=== PATIENT | male | born 1955 | race Hispanic/Latino ===

== ENCOUNTER 2017-01-14 10:52 | Emergency (ER) | payer MEDICARE ==
[2017-01-14 10:57] VITALS: RESP 18; TEMP 98.6; O2SAT 97; BMI 31.9
[2017-01-14] MEDS ORDERED: Sodium Chloride 0.9% 1,000 ML IV ONE (11:05)
--- NOTE | 2017-01-14 11:30 | ED PDOC ---
Arrival/HPI - General Historian: Patient, Family <Ketan Luna - Last Filed: 01/14/17 14:20> <Ralph Castillo DO - Last Filed: 01/14/17 21:06> - General Chief Complaint: Abdominal Pain Time Seen by Provider: 01/14/17 11:04 - History of Present Illness Narrative History of Present Illness (Text): 01/14/17 11:20 Mr. Vargas is a 61 year old male with past medical history significant for Hypertension, DM2, elevated cholesterol, pancreatitis, and possible gastroparesis per family complaining of 1 week history of right sided abdominal pain. Pt indicates the pain is dull, RLQ more than RUQ discomfort with some radiation of pain into his right lower back. He rates the pain as 7/10 and states his pain is worsened with side to side movement and deep breaths in. He denies taking any medication for the pain, trauma or strain. Pt is scheduled for barium swallow study on 01/16 for suspected gastroparesis. Associated symptoms include increased frequency with urination and cloudy urine. Pt denies hematuria, change in stool, chest pain, shortness of breath, nausea, vomiting, and diarrhea. (Ketan Luna) Past Medical History - Provider Review Nursing Documentation Reviewed: Yes - Infectious Disease Hx of Infectious Diseases: None - Tetanus Immunization Tetanus Immunization: Unknown - Cardiac Hx Hypertension: Yes - Neurological Hx Dementia: Yes - HEENT Other/Comment: Sx to the left eye - Endocrine/Metabolic Hx Diabetes Mellitus Type 2: Yes - Musculoskeletal/Rheumatological Hx Falls: No - Psychiatric Hx Depression: No Hx Emotional Abuse: No Hx Physical Abuse: No Hx Substance Use: No - Surgical History Hx Orthopedic Surgery: Yes (BACK, LEFT SHOULDER) - Anesthesia Hx Anesthesia: Yes Hx Anesthesia Reactions: No Hx Malignant Hyperthermia: No - Suicidal Assessment Feels Threatened In Home Enviroment: No <Ketan Luna - Last Filed: 01/14/17 14:20> Family/Social History - Physician Review Nursing Documentation Reviewed: Yes Family/Social History: No Known Family HX Smoking Status: Heavy Smoker > 10 Cigarettes Daily Hx Alcohol Use: No Hx Substance Use: No <Ketan Luna - Last Filed: 01/14/17 14:20> Allergies/Home Meds <Ketan Luna - Last Filed: 01/14/17 14:20> <AnthonymarcialRalph lu DO - Last Filed: 01/14/17 21:06> Allergies/Adverse Reactions: Allergies codeine Allergy (Verified 01/14/17 10:58) SHORTNESS OF BREATH iodine Allergy (Verified 01/14/17 10:58) ITCHING Home Medications: Home Meds Medication Instructions Recorded Confirmed MetFORMIN [glucoPHAGE] 1,000 mg PO BID 06/05/15 01/14/17 Aspirin [Ecotrin] 81 mg PO DAILY 01/14/17 01/14/17 GlipiZIDE [Glucotrol] 5 mg PO DAILY 01/14/17 01/14/17 Omeprazole [Omeprazole] 20 mg PO DAILY 01/14/17 01/14/17 Review of Systems - Physician Review All systems were reviewed & negative as marked: Yes - Review of Systems Gastrointestinal: Abdominal Pain (right sided ). absent: Nausea, Vomiting Genitourinary Male: Frequency, Other (cloudy urine). absent: Hematuria Musculoskeletal: Back Pain (lower back pain right sided ) <Ketan Luna - Last Filed: 01/14/17 14:20> Physical Exam Vital Signs Reviewed: Yes Temperature: Afebrile Blood Pressure: Hypertensive Pulse: Regular Respiratory Rate: Normal Appearance: Positive for: Well-Appearing Pain Distress: None Mental Status: Positive for: Alert and Oriented X 3 - Systems Exam Head: Present: Atraumatic, Normocephalic Pupils: Present: PERRL Extroacular Muscles: Present: EOMI Conjunctiva: Present: Normal Mouth: Present: Moist Mucous Membranes Neck: Present: Normal Range of Motion Respiratory/Chest: Present: Good Air Exchange, Other (coarse breath sounds). No : Respiratory Distress, Accessory Muscle Use Cardiovascular: Present: Regular Rate and Rhythm, Normal S1, S2. No: Murmurs Abdomen: Present: Tenderness, Normal Bowel Sounds. No: Distention, Peritoneal Signs, Rebound, Guarding, Mass/Organomegaly Upper Extremity: Present: Normal Inspection. No: Cyanosis, Edema Lower Extremity: Present: Normal Inspection. No: Edema Neurological: Present: GCS=15, CN II-XII Intact, Speech Normal Skin: Present: Warm, Dry, Normal Color. No: Rashes Psychiatric: Present: Alert, Oriented x 3, Normal Insight, Normal Concentration <Ketan Luna - Last Filed: 01/14/17 14:20> Medical Decision Making - Lab Interpretations I have reviewed the lab results: Yes <Ketan Luna - Last Filed: 01/14/17 14:20> <Ralph Castillo DO - Last Filed: 01/14/17 21:06> ED Course and Treatment: 01/14/17 11:37 Impression: Mr. Vargas is a 61 year old male with past medical history of Hypertension, DM2, elevated cholesterol and pancreatitis who presents with one week history of right sided abdominal pain. Differential Diagnosis included but are not limited to: - UTI - Musculoskeletal strain - Cystitis Plan: - Labs: CBC, CMP, Lipase, Urinalysis with culture - Meds: Toradol, IVF - Reassess and disposition Progress Notes: 01/14/17 11:48 (Ketan Luna) 01/14/17 Patient Seen With Resident: In agreement with resident note which contains more details about the patient. Patient was seen and evaluated with resident. Came up with plan and treatment together. (Ralph Castillo DO) - Lab Interpretations Lab Results: 01/14/17 11:30 01/14/17 11:30 Lab Results 01/14/17 12:40: Urine Color Light yellow, Urine Appearance Clear, Urine pH 7.0, Ur Specific [place] 1.020, Urine Protein 30 H, Urine Glucose (UA) Negative, Urine Ketones Negative, Urine Blood Trace-intact H, Urine Nitrate Negative, Urine Bilirubin Negative, Urine Urobilinogen 1.0 H, Ur Leukocyte Esterase Trace H, Urine RBC 0 - 2, Urine WBC 0 - 2, Ur Epithelial Cells 0 - 2 01/14/17 11:30: Sodium 139, Potassium 3.9, Chloride 102, Carbon Dioxide 27, Anion Gap 14, BUN 18, Creatinine 0.7, Est GFR ( Amer) > 60, Est GFR (Non- Af Amer) > 60, Random Glucose 174 H, Calcium 9.4, Total Bilirubin 0.5, AST 23, ALT 45, Alkaline Phosphatase 62, Total Protein 7.5, Albumin 4.2, Globulin 3.3, Albumin/Globulin Ratio 1.3, Lipase 52 01/14/17 11:30: WBC 7.9, RBC 5.18, Hgb 16.1, Hct 45.2, MCV 87.3, MCH 31.1, MCHC 35.6, RDW 12.7, Plt Count 102 L, MPV 10.8, Gran % 74.5 H, Lymph % (Auto) 17.8 L , [place] % (Auto) 6.8 H, Eos % (Auto) 0.6 L, Baso % (Auto) 0.3, Gran # 5.91, Lymph # 1.4, [place] # 0.5, Eos # 0.1, Baso # 0.02 - Medication Orders Current Medication Orders: Discontinued Medications Sodium Chloride (Sodium Chloride 0.9%) 1,000 mls @ 250 mls/hr IV .Q4H ONE Stop: 01/14/17 15:04 Last Admin: 01/14/17 11:41 Dose: 250 mls/hr Ketorolac Tromethamine (Toradol) 30 mg IVP STAT STA Stop: 01/14/17 11:42 Last Admin: 01/14/17 12:31 Dose: 30 mg - 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 LUIS has examined the patient and agrees with the treatment plan. <Ketan Luna - Last Filed: 01/14/17 14:20> - Scribe Statement The provider has reviewed the documentation as recorded by the Scribe <Ralph Castillo DO - Last Filed: 01/14/17 21:06> - Scribe Statement 01/14/2017 Kareen Brown Provider Scribe Attestation: All medical record entries made by the Scribe were at my direction and personally dictated by me. I have reviewed the chart and agree that the record accurately reflects my personal performance of the history, physical exam, medical decision making, and the department course for this patient. I have also personally directed, reviewed, and agree with the discharge instructions and disposition. (Ralph Castillo DO) Disposition/Present on Arrival - Present on Arrival Any Indicators Present on Arrival: No History of DVT/PE: No History of Uncontrolled Diabetes: No Urinary Catheter: No History of Decub. Ulcer: No History Surgical Site Infection Following: None - Disposition Have Diagnosis and Disposition been Completed?: Yes Disposition Time: 13:36 Patient Plan: Discharge <Ketan Luna - Last Filed: 01/14/17 14:20> <Ralph Castillo DO - Last Filed: 01/14/17 21:06> - Disposition Diagnosis: Musculoskeletal strain Disposition: HOME/ ROUTINE Condition: IMPROVED Discharge Instructions (ExitCare): Thrombocytopenia (ED) Additional Instructions: Mr. Vargas, thank you for letting us take care of you today. Your provider was Dr. Luna. You were treated for musculoskeletal strain. The emergency medical care you received today was directed at your acute symptoms. If you were prescribed any medication, please fill it and take as directed. It may take several days for your symptoms to resolve. Return to the Emergency Department if your symptoms worsen, do not improve, or if you have any other problems. Please contact your doctor or call one of the physicians/clinics you have been referred to that are listed on the Patient Visit Information form that is included in your discharge packet. Bring any paperwork you were given at discharge with you along with any medications you are taking to your follow up visit. Our treatment cannot replace ongoing medical care by a primary care provider (PCP) outside of the emergency department. Thank you for allowing the [facility] team to be part of your care today. Follow up with primary care physician.
[2017-01-14 11:45] LABS: BASO # 0.02 K/mm3 (0.0-2.0); BASO % 0.3 % (0.0-3.0); EOS # 0.1 (0.0-0.7); EOS % 0.6 % (1.5-5.0); GRAN # 5.91 (1.4-6.5); GRAN % 74.5 % (50.0-68.0); HEMOGLOBIN 16.1 gm/dL (14.0-18.0); LYMPH # 1.4 (1.2-3.4); LYMPH % 17.8 % (22.0-35.0); MEAN CELL VOLUME 87.3 fL (80.0-105.0); MEAN CORPUSCULAR HEMOGLOBIN 31.1 pg (25.0-35.0); MEAN CORPUSCULAR HGB CONC 35.6 g/dl (31.0-37.0); MEAN PLATELET VOLUME 10.8 fl (7.0-11.0); MONO # 0.5 (0.1-0.6); MONO % 6.8 % (1.0-6.0); PLATELET COUNT 102 10^3/uL (120.0-450.0); RBC 5.18 10^6/uL (3.5-6.1); RED CELL DISTRIBUTION WIDTH 12.7 % (11.5-14.5); WHITE BLOOD COUNT 7.9 10^3/ul (4.5-11.0)
[2017-01-14 11:53] LABS: ALB/GLOB RATIO 1.3 (1.1-1.8); ALBUMIN 4.2 g/dL (3.0-4.8); ALT/SGPT 45 U/L (7-56); AST/SGOT 23 U/L (15-59); BLOOD UREA NITROGEN 18 mg/dL (7-21); CALCIUM 9.4 mg/dL (8.4-10.5); GFR AFRICAN-AMERICAN > 60; GFR NON-AFRICAN AMERICAN > 60; LIPASE 52 U/L (23-300)
[2017-01-14 12:56] LABS: URINE BILIRUBIN NEGATIVE (NEGATIVE); URINE BLOOD TRACE-INTACT (NEGATIVE); URINE GLUCOSE (UA) NEGATIVE (NEGATIVE); URINE LEUKOCYTE ESTERASE TRACE Leu/uL (NEGATIVE); URINE NITRATE NEGATIVE (NEGATIVE); URINE PROTEIN 30 mg/dL (<30 mg/dL)
[2017-01-14 12:59] LABS: URINE APPEARANCE CLEAR (CLEAR); URINE COLOR LIGHT YELLOW (YELLOW); URINE EPITHELIAL CELLS 0 - 2 /hpf (0-5); URINE RBC 0 - 2 /hpf (0-2); URINE WBC 0 - 2 /hpf (0-6)
[2017-01-14 13:52] VITALS: BP 145/71; PULSE 69
== END 2017-01-14 14:05 | disposition home or self-care (01) ==
LOC: ED 10:52
DX: S39.011A Strain of muscle, fascia and tendon of abdomen, initial encounter (principal); X58.XXXA Exposure to other specified factors, initial encounter; F17.210 Nicotine dependence, cigarettes, uncomplicated; E11.9 Type 2 diabetes mellitus without complications; I10 Essential (primary) hypertension
CPT/HCPCS: 80053; 81001; 83690; 85025; 87086; 96374; 99283; J1885; J7040

== ENCOUNTER 2018-10-01 19:35 | Observation (INO) | payer MEDICARE ==
[2018-10-01 19:59] VITALS: BMI 30.7
--- NOTE | 2018-10-01 20:12 | ED PDOC ---
Arrival/HPI - General Chief Complaint: Chest Pain Time Seen by Provider: 10/01/18 19:37 Historian: Patient - History of Present Illness Narrative History of Present Illness (Text): 10/01/18 19:50 Ascencion Vargas is a 62 year old male, whose past medical history includes hypertension, diabetes, hyperlipidemia, and pancreatitis, who presents to the ED complaining of mid-sternal chest pain since this morning. 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 Patient became concerned and presented to the ED for further evaluation. Patient denies any fever, chills, shortness of breath, nausea, vomiting, diarrhea, urinary symptoms, back pain, neck pain, headache, dizziness, or any other complaints. Symptom Onset: Gradual Symptom Course: Unchanged Activities at Onset: Light Context: Home Past Medical History - Provider Review Nursing Documentation Reviewed: Yes - Infectious Disease Hx of Infectious Diseases: None - Tetanus Immunization Tetanus Immunization: Unknown - Cardiac Hx Hypertension: Yes - Neurological Hx Dementia: Yes - HEENT Other/Comment: Sx to the left eye - Endocrine/Metabolic Hx Diabetes Mellitus Type 2: Yes - Musculoskeletal/Rheumatological Hx Falls: No - Psychiatric Hx Depression: No Hx Emotional Abuse: No Hx Physical Abuse: No Hx Substance Use: No - Surgical History Hx Orthopedic Surgery: Yes (BACK, LEFT SHOULDER) - Anesthesia Hx Anesthesia: Yes Hx Anesthesia Reactions: No Hx Malignant Hyperthermia: No - Suicidal Assessment Feels Threatened In Home Enviroment: No Family/Social History - Physician Review Nursing Documentation Reviewed: Yes Family/Social History: Unknown Family HX Smoking Status: Heavy Smoker > 10 Cigarettes Daily Hx Alcohol Use: No Hx Substance Use: No Allergies/Home Meds Allergies/Adverse Reactions: Allergies codeine Allergy (Verified 10/01/18 19:56) SHORTNESS OF BREATH iodine Allergy (Verified 10/01/18 19:56) ITCHING Home Medications: Home Meds Medication Instructions Recorded Confirmed MetFORMIN [glucoPHAGE] 1,000 mg PO BID 06/05/15 10/01/18 Omeprazole 20 mg PO DAILY 01/14/17 10/01/18 SITagliptin [Januvia] 100 mg PO DAILY 10/01/18 10/01/18 glyBURIDE [Glyburide] 5 mg PO BID 10/01/18 10/01/18 Review of Systems - Physician Review All systems were reviewed & negative as marked: Yes - Review of Systems Constitutional: Normal. absent: Fevers Eyes: Normal ENT: Normal Respiratory: Normal. absent: SOB, Cough Cardiovascular: Chest Pain Gastrointestinal: Normal. absent: Abdominal Pain, Diarrhea, Nausea, Vomiting Genitourinary Male: Normal. absent: Dysuria, Frequency, Hematuria, Urinary Outp ut Changes Musculoskeletal: Normal. absent: Back Pain, Neck Pain Skin: Normal. absent: Rash Neurological: Normal. absent: Headache, Dizziness Endocrine: Normal Hemo/Lymphatic: Normal Psychiatric: Normal Physical Exam Vital Signs Reviewed: Yes Vital Signs Temp Pulse Resp BP Pulse Ox 10/01/18 19:45 98.2 F 72 19 149/86 96 Temperature: Afebrile Blood Pressure: Normal Pulse: Regular Respiratory Rate: Normal Appearance: Positive for: Well-Appearing, Non-Toxic, Comfortable Pain Distress: None Mental Status: Positive for: Alert and Oriented X 3 Finger Stick Blood Glucose: 328 - Systems Exam Head: Present: Atraumatic, Normocephalic Pupils: Present: PERRL Extroacular Muscles: Present: EOMI Conjunctiva: Present: Normal Mouth: Present: Moist Mucous Membranes Neck: Present: Normal Range of Motion Respiratory/Chest: Present: Clear to Auscultation, Good Air Exchange. No: Respiratory Distress, Accessory Muscle Use Cardiovascular: Present: Regular Rate and Rhythm, Normal S1, S2. No: Murmurs Abdomen: No: Tenderness, Distention, Peritoneal Signs Back: Present: Normal Inspection Upper Extremity: Present: Normal Inspection. No: Cyanosis, Edema Lower Extremity: Present: Normal Inspection. No: Edema Neurological: Present: GCS=15, CN II-XII Intact, Speech Normal Skin: Present: Warm, Dry, Normal Color. No: Rashes Psychiatric: Present: Alert, Oriented x 3, Normal Insight, Normal Concentration Medical Decision Making ED Course and Treatment: 10/01/18 19:50 Impression: 62 year old male complaining of chest pain. Plan: -- US Abdomen -- EKG -- Chest X-ray -- Labs, cardiac enzymes -- Urinalysis -- Reassess and disposition Prior Visits: Notes and results from previous visits were reviewed. Progress Notes: Reviewed EKG, NSR at [address]. Non-specific ST/T wave changes. 10/01/18 20:49 Chest X-ray reviewed, shows no acute processes. 10/01/18 21:30 US Abdomen: The liver is of increased echogenicity without evidence of mass or defect measuring 15.89 x 12.01 cm. There is no intra or extrahepatic biliary ductal dilatation. The common bile duct measures 0.29 cm. The gallbladder is physiologically distended without evidence of calculi. The gallbladder wall is not thickened measuring 0.27 cm and there is no pericholecystic fluid. There is no abdominal ascites. The visualized portions of abdominal aorta present no abnormalities. The visualized portions of the pancreas are unremarkable. The spleen is of uniform echo texture and appears enlarged measuring 13.1 x 5.22 cm. The right kidney measures 11 x 6.44 x 6.24 cm and the left kidney measures 11.53 x 6.72 x 6.17 cm. Both kidneys are free of hydronephrosis. IMPRESSION: 1. Fatty liver. 2. Splenomegaly. Electronically signed on Oct 01, 2018 9:09:54 PM EDT by: Ralph Garcia M.D., MBA Certified By [facility] [facility] Fellowship Trained MRI and CT Specialist 10/01/18 21:[address] Melo, who is aware and agrees with plan. Accepts pt in to his service. Pt will go to telemetry observation for chest pain. - Lab Interpretations I have reviewed the lab results: Yes - RAD Interpretation Radiology Orders: 10/01/18 20:03 CHEST PORTABLE [RAD] Stat 10/01/18 20:04 ABDOMEN COMPLETE [US] [employer] Senior Manager: ED Physician - EKG Interpretation Interpreted by ED Physician: Yes Type: 12 lead EKG - Scribe Statement The provider has reviewed the documentation as recorded by the Satya Baum Provider Scribe Attestation: All medical record entries made by the Scribrayne were at my direction and personally dictated by me. I have reviewed the chart and agree that the record accurately reflects my personal performance of the history, physical exam, medical decision making, and the department course for this patient. I have also personally directed, reviewed, and agree with the discharge instructions and disposition. Disposition/Present on Arrival - Present on Arrival Any Indicators Present on Arrival: No History of DVT/PE: No History of Uncontrolled Diabetes: No Urinary Catheter: No History of Decub. Ulcer: No History Surgical Site Infection Following: None - Disposition Have Diagnosis and Disposition been Completed?: Yes Diagnosis: Chest pain Disposition: HOSPITALIZED Disposition Time: 21:30 Condition: FAIR
[2018-10-01 20:25] LABS: BASO # 0.03 K/mm3 (0.0-2.0); BASO % 0.4 % (0.0-3.0); EOS # 0.2 (0.0-0.7); EOS % 2.5 % (1.5-5.0); HEMOGLOBIN 16.4 g/dL (14.0-18.0); LYMPH # 1.9 (1.2-3.4); LYMPH % 27.7 % (22.0-35.0); MEAN CELL VOLUME 86.5 fl (80.0-105.0); MEAN CORPUSCULAR HGB CONC 34.7 g/dl (31.0-37.0); MEAN PLATELET VOLUME 11.2 fl (7.0-11.0); MONO # 0.3 (0.1-0.6); MONO % 4.3 % (1.0-6.0); RBC 5.47 10^6/uL (3.5-6.1); RED CELL DISTRIBUTION WIDTH 12.5 % (11.5-14.5); WHITE BLOOD COUNT 6.8 10^3/uL (4.5-11.0)
[2018-10-01 20:38] LABS: INR 1.19; PARTIAL THROMBOPLASTIN TIME 32.5 Seconds (26.9-38.3); PROTHROMBIN TIME 13.2 SECONDS (9.4-12.5)
[2018-10-01 20:41] LABS: ALB/GLOB RATIO 1.3 (1.1-1.8); ALBUMIN 4.3 g/dL (3.0-4.8); ALT/SGPT 24 U/L (7-56); AST/SGOT 21 U/L (17-59); BLOOD UREA NITROGEN 16 mg/dL (7-21); CALCIUM 9.3 mg/dL (8.4-10.5); GFR NON-AFRICAN AMERICAN > 60; TROPONIN I < 0.01 ng/mL
[2018-10-01 21:32] LABS: URINE BILIRUBIN NEGATIVE (NEGATIVE); URINE BLOOD TRACE-INTACT (NEGATIVE); URINE GLUCOSE (UA) >=1000 mg/dL (NEGATIVE); URINE LEUKOCYTE ESTERASE NEGATIVE Leu/uL (NEGATIVE); URINE PROTEIN 100 mg/dL (<30 mg/dL); URINE UROBILINOGEN 0.2 E.U./dL (<1 E.U./dL)
[2018-10-01 21:37] LABS: URINE APPEARANCE CLEAR (CLEAR); URINE COLOR YELLOW (YELLOW)
[2018-10-01] MEDS ORDERED: Magnesium Oxide 400 mg Tab UD PO STA (22:31)
[2018-10-02 05:40] VITALS: BP 155/86; RESP 18; TEMP 97
[2018-10-02] MEDS ORDERED: Insulin Reg-LOW-Coverage SC SCH (07:30)
--- NOTE | 2018-10-02 09:50 | CARD ---
APPROVED REPORT Date of service: 10/01/2018 EKG Measurement Heart [id number] <Conclusion> Normal sinus rhythm Left axis deviation T wave abnormality, consider lateral ischemia Abnormal ECG
--- NOTE | 2018-10-02 10:16 | RAD ---
Date of service: 10/01/2018 HISTORY: cp COMPARISON: 10/08/2014 TECHNIQUE: 1 view obtained. FINDINGS: LUNGS: No active pulmonary disease. PLEURA: No significant pleural effusion identified, no pneumothorax apparent. CARDIOVASCULAR: No aortic atherosclerotic calcification present. Normal cardiac size. No pulmonary vascular congestion. OSSEOUS STRUCTURES: No significant abnormalities. VISUALIZED UPPER ABDOMEN: Normal. OTHER FINDINGS: None. IMPRESSION: No active disease.
--- NOTE | 2018-10-02 10:28 | US ---
Date of service: 10/01/2018 HISTORY: Chest pain. History of abdominal aortic aneurysm. COMPARISON: 03/23/2014. Right upper quadrant ultrasound TECHNIQUE: Sonographic evaluation of the abdomen. FINDINGS: LIVER: Measures 15.9 cm. Hepatopedal blood flow. Fatty infiltration manifest ultrasonographically as increased echogenicity of the liver parenchyma. No mass. No intrahepatic bile duct dilatation. GALLBLADDER: Unremarkable. No gallstones. COMMON BILE DUCT: Measures 2.9 mm. No stones. No dilatation. PANCREAS: Unremarkable as visualized. No mass. No ductal dilatation. RIGHT KIDNEY: Measures 4.4 x 11.1cm. Normal echogenicity. No calculus, mass, or hydronephrosis. LEFT KIDNEY: Measures 6.7 x 11.5cm. Normal echogenicity. No calculus, mass, or hydronephrosis. SPLEEN: Mild splenomegaly. Orthogonal measurements 5.2 x 13.1 cm. AORTA: No aneurysmal dilatation. IVC: Unremarkable. OTHER FINDINGS: None. IMPRESSION: No significant or acute findings to account for/ related to the clinical presentation. Additional benign and/or incidental findings described above. Concordant findings (preliminary report) provided by [facility].
--- NOTE | 2018-10-02 10:48 | CP.PCM.HP ---
<CarolyneKetan landin - Last Filed: 10/02/18 12:34> History of Present Illness - History of Present Illness History of Present Illness: Francesco Luna PGY2 H&P for Dr. Melo CC: Chest Pain HPI: Patient is a 62 year old male with past medical history of tobacco abuse, HTN, HLD, DM2, pancreatitis who presented [place] [facility] [place] complaining of 12 hour history of mid-sternal chest pain. He became concerned with his symptoms in light of recent evaluation by his music engineer and the news that he had an aneurysm. He presented to the ED requesting further evaluation. He denies shortness of breath at rest or with exertion, the pain is non-reproducible but comes on randomly at rest and with doing things around the house. He denies radiation of his pain, nausea, vomiting, back pain, mid-epigastric pain, diarrhea, constipation, vomiting, dizziness or headache. 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 FMH: Mother and Father passed due to old age in 70s ALL: NKDA Meds: MAR reviewed Present on Admission - Present on Admission Any Indicators Present on Admission: No Review of Systems - Review of Systems All systems: reviewed and no additional remarkable complaints except (as mentioned in HPI) Past Patient History - Infectious Disease Hx of Infectious Diseases: None - Tetanus Immunizations Tetanus Immunization: Unknown - Past Social History Smoking Status: Heavy Smoker > 10 Cigarettes Daily Alcohol: Social Drugs: Denies Home Situation {Lives}: With Family - CARDIAC Hx Hypertension: Yes - PULMONARY Hx Respiratory Disorders: No - NEUROLOGICAL Hx Dementia: Yes - HEENT Other/Comment: Sx to the left eye - RENAL Hx Chronic Kidney Disease: No - ENDOCRINE/METABOLIC Hx Diabetes Mellitus Type 2: Yes - HEMATOLOGICAL/ONCOLOGICAL Hx Blood Disorders: No - INTEGUMENTARY Hx Dermatological Problems: No - MUSCULOSKELETAL/RHEUMATOLOGICAL Hx Falls: No - GASTROINTESTINAL Hx Gastrointestinal Disorders: Yes (AAA) Hx Gastroesophageal Reflux: Yes Hx Pancreatitis: No - GENITOURINARY/GYNECOLOGICAL Hx Genitourinary Disorders: No - PSYCHIATRIC Hx Depression: No Hx Emotional Abuse: No Hx Physical Abuse: No Hx Substance Use: No - SURGICAL HISTORY Hx Orthopedic Surgery: Yes (BACK, LEFT SHOULDER) - ANESTHESIA Hx Anesthesia: Yes Hx Anesthesia Reactions: No Hx Malignant Hyperthermia: No Meds Allergies/Adverse Reactions: Allergies Allergy/AdvReac Type Severity Reaction Status Date / Time codeine Allergy SHORTNESS Verified 10/01/18 19:56 OF BREATH iodine Allergy ITCHING Verified 10/01/18 19:56 Physical Exam - Constitutional Appears: Well, Non-toxic - Head Exam Head Exam: ATRAUMATIC, NORMOCEPHALIC - Eye Exam Eye Exam: EOMI, PERRL - ENT Exam ENT Exam: Mucous Membranes Moist - Neck Exam Neck exam: Positive for: Full Rom - Respiratory Exam Respiratory Exam: Clear to Auscultation Bilateral, NORMAL BREATHING PATTERN. absent: Rales, Rhonchi, Wheezes - Cardiovascular Exam Cardiovascular Exam: REGULAR RHYTHM, +S1, +S2 - GI/Abdominal Exam GI & Abdominal Exam: Firm, Soft. absent: Diminished Bowel Sounds, Distended, Guarding - Extremities Exam Extremities exam: Positive for: full ROM, pedal pulses present. Negative for: calf tenderness, pedal edema - Neurological Exam Neurological exam: Alert, CN II-XII Intact, Normal Gait, Oriented x3 - Psychiatric Exam Psychiatric exam: Normal Affect, Normal Mood - Skin Skin Exam: Dry, Warm Results - Vital Signs Recent Vital Signs: Last Vital Signs Temp 97 F L 10/02/18 05:39 Pulse 79 10/02/18 05:39 Resp 18 10/02/18 05:39 BP 155/86 H 10/02/18 09:31 Pulse Ox 97 10/02/18 05:39 - Labs Result Diagrams: 10/01/18 19:55 10/01/18 19:55 Labs: Laboratory Results - last 24 hr 10/01/18 10/01/18 10/01/18 19:55 19:55 19:55 WBC 6.8 RBC 5.47 Hgb 16.4 Hct 47.3 MCV 86.5 MCH 30.0 MCHC 34.7 RDW 12.5 Plt Count 114 L MPV 11.2 H Neut % (Auto) 65.1 Lymph % (Auto) 27.7 [place] % (Auto) 4.3 Eos % (Auto) 2.5 Baso % (Auto) 0.4 Lymph # (Auto) 1.9 [place] # (Auto) 0.3 Eos # (Auto) 0.2 Baso # (Auto) 0.03 Absolute Neuts (auto) 4.42 PT 13.2 H INR 1.19 APTT 32.5 Sodium 139 Potassium 4.0 Chloride 103 Carbon Dioxide 25 Anion Gap 16 BUN 16 Creatinine 0.8 Est GFR ( Amer) > 60 Est GFR (Non-Af Amer) > 60 POC Glucose (mg/dL) Random Glucose 330 H* D Calcium 9.3 Magnesium 1.5 L Total Bilirubin 0.4 AST 21 ALT 24 Alkaline Phosphatase 65 Lactate Dehydrogenase 381 Total Creatine Kinase 45 Troponin I < 0.01 D Total Protein 7.6 Albumin 4.3 Globulin 3.3 Albumin/Globulin Ratio 1.3 Urine Color Urine Appearance Urine pH Ur Specific [place] Urine Protein Urine Glucose (UA) Urine Ketones Urine Blood Urine Nitrate Urine Bilirubin Urine Urobilinogen Ur Leukocyte Esterase Urine RBC Urine WBC Ur Epithelial Cells 10/01/18 10/01/18 10/01/18 19:55 21:30 22:56 WBC RBC Hgb Hct MCV MCH MCHC RDW Plt Count MPV Neut % (Auto) Lymph % (Auto) [place] % (Auto) Eos % (Auto) Baso % (Auto) Lymph # (Auto) [place] # (Auto) Eos # (Auto) Baso # (Auto) Absolute Neuts (auto) PT INR APTT Sodium Potassium Chloride Carbon Dioxide Anion Gap BUN Creatinine Est GFR ( Amer) Est GFR (Non-Af Amer) POC Glucose (mg/dL) 328 H 272 H Random Glucose Calcium Magnesium Total Bilirubin AST ALT Alkaline Phosphatase Lactate Dehydrogenase Total Creatine Kinase Troponin I Total Protein Albumin Globulin Albumin/Globulin Ratio Urine Color Yellow Urine Appearance Clear Urine pH 6.0 Ur Specific [place] 1.025 Urine Protein 100 H Urine Glucose (UA) >=1000 Urine Ketones Trace H Urine Blood Trace-intact H Urine Nitrate Negative Urine Bilirubin Negative Urine Urobilinogen 0.2 Ur Leukocyte Esterase Negative Urine RBC 10 - 15 H Urine WBC 1 - 3 Ur Epithelial Cells 6 - 8 H 10/02/18 10/02/18 06:23 07:32 WBC RBC Hgb Hct MCV MCH MCHC RDW Plt Count MPV Neut % (Auto) Lymph % (Auto) [place] % (Auto) Eos % (Auto) Baso % (Auto) Lymph # (Auto) [place] # (Auto) Eos # (Auto) Baso # (Auto) Absolute Neuts (auto) PT INR APTT Sodium Potassium Chloride Carbon Dioxide Anion Gap BUN Creatinine Est GFR ( Amer) Est GFR (Non-Af Amer) POC Glucose (mg/dL) 263 H Random Glucose Calcium Magnesium Total Bilirubin AST ALT Alkaline Phosphatase Lactate Dehydrogenase Total Creatine Kinase Troponin I < 0.01 Total Protein Albumin Globulin Albumin/Globulin Ratio Urine Color Urine Appearance Urine pH Ur Specific [place] Urine Protein Urine Glucose (UA) Urine Ketones Urine Blood Urine Nitrate Urine Bilirubin Urine Urobilinogen Ur Leukocyte Esterase Urine RBC Urine WBC Ur Epithelial Cells Assessment & Plan - Assessment and Plan (Free Text) Assessment: 1.Chest Pain 2.HTN 3.Dyslipidemia 4.Fatty Liver 5.Spleenomegaly 6.Tobacco Abuse Patient was evaluated in ED with EKG showing no ST segment elevations or depressions, CXR without acute abnormalities, abdominal US showing splenomegaly and fatty liver without evidence of abdominal aneurysm. Patient was evaluated with blood testing and found to have troponin negative x 2. Will follow up on a third. He will undergo evaluation from cardiology with Dr. Rankin. Patient is placed on amlodipine and losartan for blood pressure control. Patient placed on insulin sliding scale and glyburide for blood sugar control in setting of DM2. Patient is placed on nicotine patch and counseled on smoking cessation. Patient is advised and educated on alcohol cessation in setting of fatty liver as evidence of abdominal US. Will monitor patient, trend troponins and follow up cardiology recommendations. Patient seen, case and plan discussed with attending, Dr. Melo <Adelfo Melo S - Last Filed: 10/02/18 15:48> Results - Vital Signs Recent Vital Signs: Last Vital Signs Temp 97 F L 10/02/18 05:39 Pulse 82 10/02/18 10:00 Resp 18 10/02/18 05:39 BP 155/86 H 10/02/18 09:31 Pulse Ox 98 10/02/18 10:00 - Labs Result Diagrams: 10/01/18 19:55 10/01/18 19:55 Labs: Laboratory Results - last 24 hr 10/01/18 10/01/18 10/01/18 19:55 19:55 19:55 WBC 6.8 RBC 5.47 Hgb 16.4 Hct 47.3 MCV 86.5 MCH 30.0 MCHC 34.7 RDW 12.5 Plt Count 114 L MPV 11.2 H Neut % (Auto) 65.1 Lymph % (Auto) 27.7 [place] % (Auto) 4.3 Eos % (Auto) 2.5 Baso % (Auto) 0.4 Lymph # (Auto) 1.9 [place] # (Auto) 0.3 Eos # (Auto) 0.2 Baso # (Auto) 0.03 Absolute Neuts (auto) 4.42 PT 13.2 H INR 1.19 APTT 32.5 Sodium 139 Potassium 4.0 Chloride 103 Carbon Dioxide 25 Anion Gap 16 BUN 16 Creatinine 0.8 Est GFR ( Amer) > 60 Est GFR (Non-Af Amer) > 60 POC Glucose (mg/dL) Random Glucose 330 H* D Calcium 9.3 Magnesium 1.5 L Total Bilirubin 0.4 AST 21 ALT 24 Alkaline Phosphatase 65 Lactate Dehydrogenase 381 Total Creatine Kinase 45 Troponin I < 0.01 D Total Protein 7.6 Albumin 4.3 Globulin 3.3 Albumin/Globulin Ratio 1.3 Urine Color Urine Appearance Urine pH Ur Specific [place] Urine Protein Urine Glucose (UA) Urine Ketones Urine Blood Urine Nitrate Urine Bilirubin Urine Urobilinogen Ur Leukocyte Esterase Urine RBC Urine WBC Ur Epithelial Cells 10/01/18 10/01/18 10/01/18 19:55 21:30 22:56 WBC RBC Hgb Hct MCV MCH MCHC RDW Plt Count MPV Neut % (Auto) Lymph % (Auto) [place] % (Auto) Eos % (Auto) Baso % (Auto) Lymph # (Auto) [place] # (Auto) Eos # (Auto) Baso # (Auto) Absolute Neuts (auto) PT INR APTT Sodium Potassium Chloride Carbon Dioxide Anion Gap BUN Creatinine Est GFR ( Amer) Est GFR (Non-Af Amer) POC Glucose (mg/dL) 328 H 272 H Random Glucose Calcium Magnesium Total Bilirubin AST ALT Alkaline Phosphatase Lactate Dehydrogenase Total Creatine Kinase Troponin I Total Protein Albumin Globulin Albumin/Globulin Ratio Urine Color Yellow Urine Appearance Clear Urine pH 6.0 Ur Specific [place] 1.025 Urine Protein 100 H Urine Glucose (UA) >=1000 Urine Ketones Trace H Urine Blood Trace-intact H Urine Nitrate Negative Urine Bilirubin Negative Urine Urobilinogen 0.2 Ur Leukocyte Esterase Negative Urine RBC 10 - 15 H Urine WBC 1 - 3 Ur Epithelial Cells 6 - 8 H 10/02/18 10/02/18 06:23 07:32 WBC RBC Hgb Hct MCV MCH MCHC RDW Plt Count MPV Neut % (Auto) Lymph % (Auto) [place] % (Auto) Eos % (Auto) Baso % (Auto) Lymph # (Auto) [place] # (Auto) Eos # (Auto) Baso # (Auto) Absolute Neuts (auto) PT INR APTT Sodium Potassium Chloride Carbon Dioxide Anion Gap BUN Creatinine Est GFR ( Amer) Est GFR (Non-Af Amer) POC Glucose (mg/dL) 263 H Random Glucose Calcium Magnesium Total Bilirubin AST ALT Alkaline Phosphatase Lactate Dehydrogenase Total Creatine Kinase Troponin I < 0.01 Total Protein Albumin Globulin Albumin/Globulin Ratio Urine Color Urine Appearance Urine pH Ur Specific [place] Urine Protein Urine Glucose (UA) Urine Ketones Urine Blood Urine Nitrate Urine Bilirubin Urine Urobilinogen Ur Leukocyte Esterase Urine RBC Urine WBC Ur Epithelial Cells Assessment & Plan - Assessment and Plan (Free Text) Assessment: Pt seen and examined by me. I have reviewed the note of the hospital medical assistant and I agree with it. I have discussed the assessment and plan with the resident. I have reviewed the medications and the last labs. Pt with chest pain that has resoled. EKG did not show significant abnormalities.Pt has HTN and will be on Amlodipine and Losartan. He will be seen by cardiology and if cleared, go home. I saw the pt today with the daughter at bedside. He will need a stress test. Trop has been negative. He will be on Glyburide for his DM-2. He has been placed on a nicotine patch and advised to stop smoking. He has a fatty liver and will need diet and wt loss. He has no CP now.
--- NOTE | 2018-10-02 12:28 | CON ---
DATE OF CONSULTATION: 10/02/2018 REQUESTING PHYSICIAN: Dr. Melo. REASON FOR CONSULTATION: Chest pain. HISTORY: This is a 62-year-old man, known to me with a history of hypertension, hyperlipidemia, diabetes, and tobacco abuse, who presents to the emergency room complaining of left-sided chest discomfort. He states he cannot identify any precipitating cause. He was sitting at rest when the symptoms began. He had mild associated dyspnea. He had some concern as he was recently seen by baggage porter and had a CT scan, which reportedly showed evidence of a small abdominal aortic aneurysm. He was last evaluated many years ago with stress testing, which was reportedly unremarkable. He is currently chest-pain free, and his cardiac enzymes have been negative. His electrocardiogram shows no acute changes. His cardiac risk factors include hypertension, hyperlipidemia, diabetes, and tobacco abuse. PAST MEDICAL HISTORY: Notable for prior eye surgery, back and left shoulder surgery, as well as pancreatitis in the past. SOCIAL HISTORY: He is a heavy smoker, one pack per day for many years. He is , lives with his . He denies excess alcohol intake. 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 ALLERGIES: NONE. FAMILY HISTORY: Both parents are from age-related illness. REVIEW OF SYSTEMS: Ten-point review of systems is notable mainly for the problems mentioned above. PHYSICAL EXAMINATION: GENERAL: He is a middle-aged man, who appears comfortable at rest. VITAL SIGNS: His blood pressure is 156/86 with a pulse of 80 and sinus, respirations are 14 and is afebrile. HEENT: Normocephalic, atraumatic. CHEST: Bilateral scattered rhonchi heard. HEART: PMI in normal position. No pathological murmurs or gallops noted. ABDOMEN: Soft, nontender with normoactive bowel sounds. No palpable masses are noted. EXTREMITIES: No clubbing, cyanosis, or edema. SKIN: Warm and dry. PSYCHIATRIC: Normal mood and affect. VASCULAR: 1+ pulses in both lower extremities. DIAGNOSTIC DATA: Three sets cardiac enzymes are negative. White count is 6.8, hemoglobin and hematocrit are 16.4 and 47.3, and a platelet count of 114,000. PT/PTT are 13.2 and 32.5. Potassium 4. BUN and creatinine are 16 and 0.8. Glucose is 330. Electrocardiogram reveals a sinus rhythm with nonspecific ST-T abnormalities. Chest x-ray reveals normal cardiac silhouette with clear lung clark. IMPRESSION: 1. Recent chest pain suspicious for angina given his multiple risk factors and age. 2. History of hypertension, diabetes and hyperlipidemia. 3. History of prolonged tobacco abuse. 4. Rest of the problems as noted. 5. Thrombocytopenia, etiology uncertain. RECOMMENDATIONS: From a cardiac standpoint, he appears stable for discharge home at this time. An outpatient stress test will be arranged. Smoking abstinence was strongly encouraged. The need for aggressive risk factor control was discussed with him and his . Thank you for this consultation. I will be happy to make arrangements for an outpatient workup. Ciro Duran MD
--- NOTE | 2018-10-02 12:34 | CP.PCM.DIS ---
<Ketan Luna - Last Filed: 10/02/18 12:35> Provider - Provider Date of Admission: 10/01/18 22:17 Attending physician: Adelfo Melo MD Consults: 10/02/18 06:24 Consult [Physician Consult] Routine Comment: Consulting Provider: Ciro Duran Consulting Physician: Ciro Duran Reason for Consult: CP Time Spent in preparation of Discharge (in minutes): 35 Diagnosis - Discharge Diagnosis (1) Chest pain Status: Resolved Hospital Course - Lab Results Lab Results: Most Recent Lab Values WBC 6.8 10^3/uL (4.5-11.0) 10/01/18 19:55 RBC 5.47 10^6/uL (3.5-6.1) 10/01/18 19:55 Hgb 16.4 g/dL (14.0-18.0) 10/01/18 19:55 Hct 47.3 % (42.0-52.0) 10/01/18 19:55 MCV 86.5 fl (80.0-105.0) 10/01/18 19:55 MCH 30.0 pg (25.0-35.0) 10/01/18 19:55 MCHC 34.7 g/dl (31.0-37.0) 10/01/18 19:55 RDW 12.5 % (11.5-14.5) 10/01/18 19:55 Plt Count 114 10^3/uL (120.0-450.0) L 10/01/18 19:55 MPV 11.2 fl (7.0-11.0) H 10/01/18 19:55 Neut % (Auto) 65.1 % (50.0-68.0) 10/01/18 19:55 Lymph % (Auto) 27.7 % (22.0-35.0) 10/01/18 19:55 [place] % (Auto) 4.3 % (1.0-6.0) 10/01/18 19:55 Eos % (Auto) 2.5 % (1.5-5.0) 10/01/18 19:55 Baso % (Auto) 0.4 % (0.0-3.0) 10/01/18 19:55 Lymph # (Auto) 1.9 (1.2-3.4) 10/01/18 19:55 [place] # (Auto) 0.3 (0.1-0.6) 10/01/18 19:55 Eos # (Auto) 0.2 (0.0-0.7) 10/01/18 19:55 Baso # (Auto) 0.03 K/mm3 (0.0-2.0) 10/01/18 19:55 Absolute Neuts (auto) 4.42 (1.4-6.5) 10/01/18 19:55 PT 13.2 SECONDS (9.4-12.5) H 10/01/18 19:55 INR 1.19 10/01/18 19:55 APTT 32.5 Seconds (26.9-38.3) 10/01/18 19:55 Sodium 139 mmol/L (132-148) 10/01/18 19:55 Potassium 4.0 mmol/L (3.6-5.0) 10/01/18 19:55 Chloride 103 mmol/L (98-107) 10/01/18 19:55 Carbon Dioxide 25 mmol/L (21-33) 10/01/18 19:55 Anion Gap 16 (10-20) 10/01/18 19:55 BUN 16 mg/dL (7-21) 10/01/18 19:55 Creatinine 0.8 mg/dl (0.8-1.5) 10/01/18 19:55 Est GFR ( Amer) > 60 10/01/18 19:55 Est GFR (Non-Af Amer) > 60 10/01/18 19:55 POC Glucose (mg/dL) 263 mg/dL (65-110) H 10/02/18 07:32 Random Glucose 330 mg/dL (70-110) H* D 10/01/18 19:55 Calcium 9.3 mg/dL (8.4-10.5) 10/01/18 19:55 Magnesium 1.5 mg/dL (1.7-2.2) L 10/01/18 19:55 Total Bilirubin 0.4 mg/dL (0.2-1.3) 10/01/18 19:55 AST 21 U/L (17-59) 10/01/18 19:55 ALT 24 U/L (7-56) 10/01/18 19:55 Alkaline Phosphatase 65 U/L (38-126) 10/01/18 19:55 Lactate Dehydrogenase 381 U/L (333-699) 10/01/18 19:55 Total Creatine Kinase 45 U/L (35-230) 10/01/18 19:55 Troponin I < 0.01 ng/mL 10/02/18 06:23 Total Protein 7.6 g/dL (5.8-8.3) 10/01/18 19:55 Albumin 4.3 g/dL (3.0-4.8) 10/01/18 19:55 Globulin 3.3 gm/dL 10/01/18 19:55 Albumin/Globulin Ratio 1.3 (1.1-1.8) 10/01/18 19:55 Urine Color Yellow (YELLOW) 10/01/18 21:30 Urine Appearance Clear (CLEAR) 10/01/18 21:30 Urine pH 6.0 (4.7-8.0) 10/01/18 21:30 Ur Specific [place] 1.025 (1.005-1.035) 10/01/18 21:30 Urine Protein 100 mg/dL (<30 mg/dL) H 10/01/18 21:30 Urine Glucose (UA) >=1000 mg/dL (NEGATIVE) 10/01/18 21:30 Urine Ketones Trace mg/dL (NEGATIVE) H 10/01/18 21:30 Urine Blood Trace-intact (NEGATIVE) H 10/01/18 21:30 Urine Nitrate Negative (NEGATIVE) 10/01/18 21:30 Urine Bilirubin Negative (NEGATIVE) 10/01/18 21:30 Urine Urobilinogen 0.2 E.U./dL (<1 E.U./dL) 10/01/18 21:30 Ur Leukocyte Esterase Negative Cassius/uL (NEGATIVE) 10/01/18 21:30 Urine RBC 10 - 15 /hpf (0-2) H 10/01/18 21:30 Urine WBC 1 - 3 /hpf (0-6) 10/01/18 21:30 Ur Epithelial Cells 6 - 8 /hpf (0-5) H 10/01/18 21:30 - Hospital Course Hospital Course: Mr. Vargas is a 62 year old male with past medical history of of tobacco abuse, HTN, HLD, DM2, pancreatitis who presented to [facility] ED complaining of 12 hour history of mid-sternal chest pain. He was admitted for chest pain ACS rule out. Patient was evaluated with abdominal US that showed no evidence of abdominal aneurysm. US did show evidence of fatty liver, gallbladder distention without presence of gallstones and spleenomegaly. Patient had EKG on initial assessment in ED with no evidence of acute ST segment changes, T wave inversions. Cardiac enzymes were trended and noted to be negative. Patient was e valuated by cardiology with Dr. Rankin. Cardiology indicated the patient was stable for dischare and for patient to have stress test outpatient arranged. Patient was noted to be hemodynamically stable and with no evidence of cardiac ischemia. Patient was discharged home with planned outpatient follow up with his telehealth nurse educator and primary care doctor. Patient was educated on risk factor control, most notable smoking cessation, proper blood pressure control as well as diabetic control. He was instructed to return to nearest ED if he experienced any signs of chest pain, shortness of breath, significant abdominal pain. Patient was in understanding of discharge planning and agreeable. Discharge Exam - Head Exam Head Exam: ATRAUMATIC, NORMOCEPHALIC - Eye Exam Eye Exam: EOMI, PERRL - ENT Exam ENT Exam: Mucous Membranes Moist - Neck Exam Neck exam: Full Rom - Respiratory Exam Respiratory Exam: Clear to PA & Lateral, NORMAL BREATHING PATTERN - Cardiovascular Exam Cardiovascular Exam: REGULAR RHYTHM, +S1, +S2 - GI/Abdominal Exam GI & Abdominal Exam: Normal Bowel Sounds, Soft, Unremarkable. absent: Rigid, Tenderness - Extremities Exam Extremities exam: full ROM, normal capillary refill, pedal pulses present - Neurological Exam Neurological exam: Alert, CN II-XII Intact, Normal Gait, Oriented x3, Reflexes Normal - Psychiatric Exam Psychiatric exam: Normal Affect, Normal Mood - Skin Skin Exam: Dry, Warm Discharge Plan - Follow Up Plan Condition: FAIR Disposition: HOME/ ROUTINE Instructions: Hyperglycemia, Adult (DC), Quitting Smoking, Chest Pain (DC) Additional Instructions: Please resume all medications you were taking prior to this admission. Continue your smoking cessation Continue to monitor your glucose and keep with a heart healthy diabetic diet. If symptoms return or worsen please call 911 or visit your nearest emergency room. Referrals: Esther Harrison [Medical Doctor] - Ciro Duran MD [Staff Provider] - <Adelfo Melo - Last Filed: 10/02/18 15:44> Provider - Provider Date of Admission: 10/01/18 22:17 Attending physician: Adelfo Melo MD Consults: 10/02/18 06:24 Consult [Physician Consult] Routine Comment: Consulting Provider: Ciro Duran Consulting Physician: Ciro Duran Reason for Consult: CP Hospital Course - Lab Results Lab Results: Most Recent Lab Values WBC 6.8 10^3/uL (4.5-11.0) 10/01/18 19:55 RBC 5.47 10^6/uL (3.5-6.1) 10/01/18 19:55 Hgb 16.4 g/dL (14.0-18.0) 10/01/18 19:55 Hct 47.3 % (42.0-52.0) 10/01/18 19:55 MCV 86.5 fl (80.0-105.0) 10/01/18 19:55 MCH 30.0 pg (25.0-35.0) 10/01/18 19:55 MCHC 34.7 g/dl (31.0-37.0) 10/01/18 19:55 RDW 12.5 % (11.5-14.5) 10/01/18 19:55 Plt Count 114 10^3/uL (120.0-450.0) L 10/01/18 19:55 MPV 11.2 fl (7.0-11.0) H 10/01/18 19:55 Neut % (Auto) 65.1 % (50.0-68.0) 10/01/18 19:55 Lymph % (Auto) 27.7 % (22.0-35.0) 10/01/18 19:55 [place] % (Auto) 4.3 % (1.0-6.0) 10/01/18 19:55 Eos % (Auto) 2.5 % (1.5-5.0) 10/01/18 19:55 Baso % (Auto) 0.4 % (0.0-3.0) 10/01/18 19:55 Lymph # (Auto) 1.9 (1.2-3.4) 10/01/18 19:55 [place] # (Auto) 0.3 (0.1-0.6) 10/01/18 19:55 Eos # (Auto) 0.2 (0.0-0.7) 10/01/18 19:55 Baso # (Auto) 0.03 K/mm3 (0.0-2.0) 10/01/18 19:55 Absolute Neuts (auto) 4.42 (1.4-6.5) 10/01/18 19:55 PT 13.2 SECONDS (9.4-12.5) H 10/01/18 19:55 INR 1.19 10/01/18 19:55 APTT 32.5 Seconds (26.9-38.3) 10/01/18 19:55 Sodium 139 mmol/L (132-148) 10/01/18 19:55 Potassium 4.0 mmol/L (3.6-5.0) 10/01/18 19:55 Chloride 103 mmol/L (98-107) 10/01/18 19:55 Carbon Dioxide 25 mmol/L (21-33) 10/01/18 19:55 Anion Gap 16 (10-20) 10/01/18 19:55 BUN 16 mg/dL (7-21) 10/01/18 19:55 Creatinine 0.8 mg/dl (0.8-1.5) 10/01/18 19:55 Est GFR ( Amer) > 60 10/01/18 19:55 Est GFR (Non-Af Amer) > 60 10/01/18 19:55 POC Glucose (mg/dL) 263 mg/dL (65-110) H 10/02/18 07:32 Random Glucose 330 mg/dL (70-110) H* D 10/01/18 19:55 Calcium 9.3 mg/dL (8.4-10.5) 10/01/18 19:55 Magnesium 1.5 mg/dL (1.7-2.2) L 10/01/18 19:55 Total Bilirubin 0.4 mg/dL (0.2-1.3) 10/01/18 19:55 AST 21 U/L (17-59) 10/01/18 19:55 ALT 24 U/L (7-56) 10/01/18 19:55 Alkaline Phosphatase 65 U/L (38-126) 10/01/18 19:55 Lactate Dehydrogenase 381 U/L (333-699) 10/01/18 19:55 Total Creatine Kinase 45 U/L (35-230) 10/01/18 19:55 Troponin I < 0.01 ng/mL 10/02/18 06:23 Total Protein 7.6 g/dL (5.8-8.3) 10/01/18 19:55 Albumin 4.3 g/dL (3.0-4.8) 10/01/18 19:55 Globulin 3.3 gm/dL 10/01/18 19:55 Albumin/Globulin Ratio 1.3 (1.1-1.8) 10/01/18 19:55 Urine Color Yellow (YELLOW) 10/01/18 21:30 Urine Appearance Clear (CLEAR) 10/01/18 21:30 Urine pH 6.0 (4.7-8.0) 10/01/18 21:30 Ur Specific [place] 1.025 (1.005-1.035) 10/01/18 21:30 Urine Protein 100 mg/dL (<30 mg/dL) H 10/01/18 21:30 Urine Glucose (UA) >=1000 mg/dL (NEGATIVE) 10/01/18 21:30 Urine Ketones Trace mg/dL (NEGATIVE) H 10/01/18 21:30 Urine Blood Trace-intact (NEGATIVE) H 10/01/18 21:30 Urine Nitrate Negative (NEGATIVE) 10/01/18 21:30 Urine Bilirubin Negative (NEGATIVE) 10/01/18 21:30 Urine Urobilinogen 0.2 E.U./dL (<1 E.U./dL) 10/01/18 21:30 Ur Leukocyte Esterase Negative Cassius/uL (NEGATIVE) 10/01/18 21:30 Urine RBC 10 - 15 /hpf (0-2) H 10/01/18 21:30 Urine WBC 1 - 3 /hpf (0-6) 10/01/18 21:30 Ur Epithelial Cells 6 - 8 /hpf (0-5) H 10/01/18 21:30 - Hospital Course Hospital Course: Pt seen and examined by me. I have reviewed the note of the medical corps officer and I agree with it. I have discussed the assessment and plan with the resident. I have reviewed the medications and the last labs. Pt to get stress test as outpt.
[2018-10-02 15:08] VITALS: PULSE 82; O2SAT 98
== END 2018-10-02 11:48 | disposition home or self-care (01) ==
LOC: ED 19:35 → ERH 22:17 → 2RSO 22:48
PROVIDERS: ADMIT Internal Medicine Nephrology; ATTEND Internal Medicine Nephrology
DX: R07.2 Precordial pain (principal); I10 Essential (primary) hypertension; I71.4 Abdominal aortic aneurysm, without rupture; D69.6 Thrombocytopenia, unspecified; E11.9 Type 2 diabetes mellitus without complications; K76.0 Fatty (change of) liver, not elsewhere classified; E78.5 Hyperlipidemia, unspecified; F03.90 Unspecified dementia, unspecified severity, without behavioral disturbance, psychotic disturbance, mood disturbance, and anxiety; K82.8 Other specified diseases of gallbladder; F17.210 Nicotine dependence, cigarettes, uncomplicated; Z79.84 Long term (current) use of oral hypoglycemic drugs
CPT/HCPCS: 36415; 71045; 76700; 80053; 81001; 82550; 82948; 83615; 83735; 84484; 85025; 85610; 85730; 93005; 99285; G0378